=== PATIENT | male | born 1960 | race Caucasian/White ===

== ENCOUNTER 2025-05-03 13:23 | Outpatient (CLI) | payer MEDICARE, BC ==
[~2025-05-03] VITALS: Ht 185.4 cm; Wt 136.1 kg
--- NOTE | 2025-05-03 14:36 | ELECTROCARDIOGRAPH REPORT ---
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 NUSRAT Okeefe Measurements Intervals [place] Rate: 66 P: 58 AL: 212 QRS: 68 QRSD: 114 T: 14 QT: 427 QTc: 448 Interpretive Statements Sinus rhythm Borderline prolonged AL interval Borderline intraventricular conduction delay Borderline T abnormalities, anterior leads Electronically Signed On 05-03-2025 16:40:[address] NUSRAT Okeefe Please click the below link to view image of tracing.
[2025-05-03 14:37] LABS: MEAN PLATELET VOLUME 8.0 FL (7.4-10.4); RED CELL DISTRIBUTION WIDTH 13.3 % (11.5-14.5)
[2025-05-03 14:55] LABS: CREATININE 0.85 MG/DL (0.60-1.10); TOTAL CARBON DIOXIDE 24.4 MMOL/L (24-32); eGFR 90 ML/MIN
[2025-05-03] MEDS ORDERED: CARV25TA2 PO (15:57)
[2025-05-03] MEDS ORDERED: ATOR20TA66 PO (15:57)
[2025-05-03] MEDS ORDERED: HYDR25TA5 PO (15:57)
[2025-05-03] MEDS ORDERED: DOXY-224 PO (15:57)
== END 2025-05-03 23:59 | disposition home or self-care (01) ==
LOC: LAB 13:23 → EDSTATUS 05-12 07:30
PROVIDERS: ATTEND Urology
DX: Z01.818 Encounter for other preprocedural examination (principal); C61 Malignant neoplasm of prostate; I10 Essential (primary) hypertension; E66.9 Obesity, unspecified; G47.33 Obstructive sleep apnea (adult) (pediatric); Z79.2 Long term (current) use of antibiotics; Z79.899 Other long term (current) drug therapy; Z96.651 Presence of right artificial knee joint; Z68.39 Body mass index [BMI] 39.0-39.9, adult
CPT/HCPCS: 36415; 80053; 85025; 86885; 86900; 86901; 93005; A6446; J7120

== ENCOUNTER 2025-06-09 05:34 | Day surgery (SDC) | payer MEDICARE, BC ==
[2025-06-04 14:14] LABS: MEAN PLATELET VOLUME 8.5 FL (7.4-10.4); PRE OP HEMATOCRIT 45.0 % (42.0-52.0); PRE OP HEMOGLOBIN 15.2 g/dL (14.0-17.9); PRE OP PLATELET COUNT 186 X10'3 (140-440); PRE OP WHITE BLOOD COUNT 7.7 10'3 (4.8-10.8); RED CELL DISTRIBUTION WIDTH 13.5 % (11.5-14.5)
[2025-06-04 14:29] LABS: CREATININE 1.03 MG/DL (0.60-1.10); PRE OP ALT 40 U/L (30-65); PRE OP ANION GAP 9 (8-16); PRE OP AST 30 U/L (10-37); PRE OP BILIRUB, TOTAL 0.8 MG/DL (0.0-1.0); PRE OP GLUCOSE 112 MG/DL (70-104); PRE OP POTASSIUM 4.0 MMOL/L (3.4-5.1); PRE OP SODIUM 143 MMOL/L (135-145); TOTAL CARBON DIOXIDE 26.6 MMOL/L (24-32); eGFR 72 ML/MIN
[2025-06-09] VITALS (27 sets, daily range): BP systolic 123–168; BP diastolic 72–105; PULSE 54–85; RESP 10–21; TEMP 96.5–98.1; O2SAT 90–98
[~2025-06-09] VITALS: Ht 185.4 cm; Wt 147.4 kg
[2025-06-09] MEDS: Cefazolin 3 GM/100ML NS IVPB 100 ML IV ONE (05:30)
[2025-06-09] MEDS: DOCUMENT DATE & TIME OF BETA-BLOCKER PO ONE (05:30)
[~2025-06-09 05:34] MED LIST: ATOR20TA66 PO; CARV25TA2 PO; HYDR25TA5 PO
[2025-06-09] MEDS: ringers solution, lacted 1,000 ML IV SCH ×2 (06:04→13:46)
[2025-06-09] MEDS ORDERED: INDOCYANINE GREEN 25 MG/10 ML VIAL IV ONE (07:19)
[2025-06-09] MEDS ORDERED: BUPIVAcaine 0.25% w/Epi /PF 30ml vial ONE (07:19)
[2025-06-09] MEDS ORDERED: BUPIVACAINE liposomal/PF 13.3 MG/ML 10mL vial IM ONE (07:20)
[2025-06-09] MEDS ORDERED: midazolam 1 mg/ML 2ml injection ONE ×2 (07:25→07:26)
[2025-06-09] MEDS ORDERED: fentaNYL /PF 50mcg/ml 5ml ampule ONE (07:26)
[2025-06-09] MEDS ORDERED: rocuronium 10mg/ml inj IV ONE ×2 (07:27→10:47)
[2025-06-09] MEDS ORDERED: propofol inj 20 ML IV ONE (07:27)
[2025-06-09] MEDS: BUPIVAcaine 0.25% w/Epi /PF 30ml vial IJ ONE (07:58)
[2025-06-09] MEDS: BUPIVACAINE liposomal/PF 13.3 MG/ML 10mL vial IM ONE (07:58)
[2025-06-09] MEDS ORDERED: ondansetron/PF 4mg/2ml inj ONE (07:58)
[2025-06-09] MEDS ORDERED: fentaNYL/PF 50MCG/1 ML 2ML syringe IV PRN (10:10)
[2025-06-09] MEDS ORDERED: hydrALAZINE 20mg/ml inj. IV PRN (10:10)
[2025-06-09] MEDS ORDERED: HYDROmorphone/PF 0.2 MG/ML SYRINGE IV PRN (10:10)
[2025-06-09] MEDS ORDERED: labetalol 20mg/4ml (5mg/ml) syringe IV PRN (10:10)
[2025-06-09] MEDS ORDERED: ondansetron/PF 4mg/2ml inj IV PRN ×2 (10:10→12:45)
[2025-06-09] MEDS ORDERED: dexamethasone sod phosphate 4mg/ml inj. ONE (10:47)
[2025-06-09] MEDS ORDERED: glycopyrrolate 0.2mg/ml inj ONE (12:25)
[2025-06-09] MEDS ORDERED: magnesium hydroxide 30ml (MOM) UD suspension PO PRN (12:45)
[2025-06-09] MEDS ORDERED: HYDROmorphone inj. 0.5 MG/0.5 ML DISP.SYRIN IV PRN (12:45)
[2025-06-09] MEDS ORDERED: mag hydrox/Alum hydrox/simeth 30ml oral suspension PO PRN (12:45)
--- NOTE | 2025-06-09 12:50 | OPERATIVE REPORT ---
Operative Report Providers to ~ Date of Procedure: Jun 09, 2025 Pre-Operative Diagnosis: Prostate cancer Post-Operative Diagnosis SAME as PRE-Op Procedure Performed Radical prostatectomy Surgeon: MD Jacqui Paperboard Machine Operator MD Philip Massey NP Anesthesiologist: Yoni Lutz Type of Anesthesia: General Findings: Very large prostate concerning lymph node on the left side Complications None Prosthetics\Implants used: Nicholson catheter Estimated Blood Loss: 200 mL Specimen Removed: 1. Prostate 2. Periprostatic lymph node Description of Procedure: Patient was brought to the operating room, given a general anesthetic, and placed in the supine position. He was prepped and draped in the normal sterile fashion. A timeout was performed. A nicholson catheter was placed. An incision was made above the umbilicus. Verass needle was used the insuflate the abdomen. Then an 8 [place] robotic port was placed. We then placed 3 more robotic ports lateral to the median port. On the right a 12 [place] patient services assistant port was placed under direct visualization. The patient was put into steep trendelenburg and the robot was docked. With the robot docked I used sharp dissection to drop the sigmoid colon. Once the sigmoid colon was dropped I made an incision in the peritoneum posteriorly and dissected to the seminal vesicles and vas deferns bilaterally. Once I was there I was able to dissect the posterior plan. Vas deferns were dissected bilaterally. I next turned my attention to the bladder. I dropped the bladder and approached the prostate from above opening the endopelvic fascia bilaterally with sharp dissection. Once this was completed and all pelvic floor muscles were brushed off the prostate I next turned to taking the bladder neck. Electrocautery was used to dissect the bladder neck until the catheter was reached, at which point the catheter was pulled up and the posterior bladder neck was dissected. Seminal vesicles and vas deferns bilaterally were both pulled up at this point. I next continued fully dissecting the posterior. The pedicles were taken at this point and the nerves were spared. I then used sharp dissection to take the dorsal venous complex, using a 3-0 v-lock suture to close the sinuses. The rest of the urethra was then taken with sharp dissection. The prostate was now free and moved out of the way, and double armed 3-0 v-loc suture was used to approximate the bladder neck to the urethra. I did this circumstantially until it was complete. This was tested with a new nicholson catheter and was water tight. The anastamosis had to be redone as it leaked the first time. The prostate was placed in a specimen bag and the robot was undocked. The incision over the umbilicus was increased to allow the prostate to be removed, at which point it was removed. 2-0 vicryl suture was used to close the fascia, local anesthetic was injected into each wound, and 4-0 monocryl suture was used to close the skin with dermabond glue on the skin level. Level 22 modifier due to the procedure took greater than 50% longer than normal. The patient's body habitus made the case much longer and more challenging. FANTASMA WHALEY MD Jun 09, 2025 12:50
[2025-06-09] MEDS: HYDROmorphone/PF 0.2 MG/ML SYRINGE IV PRN (13:09)
[2025-06-09] MEDS: acetaminophen 1,000mg/100ml IV 100 ML IV PRN (13:21)
[2025-06-09] MEDS: fentaNYL/PF 50MCG/1 ML 2ML syringe IV PRN (13:22)
[2025-06-09] MEDS: HYDROcodone/acetaminophen 5mg/325mg tablet PO PRN (14:27)
[2025-06-09] MEDS: heparin, porcine 5000 units/ml vial SQ SCH (20:00)
[2025-06-09] MEDS: docusate sod 100mg capsule PO SCH (21:05)
[2025-06-10 02:00] VITALS: BP 149/79; PULSE 68; RESP 18; TEMP 96.4; O2SAT 94
[2025-06-10 05:47] LABS: MEAN PLATELET VOLUME 8.7 FL (7.4-10.4); RED CELL DISTRIBUTION WIDTH 13.3 % (11.5-14.5)
[2025-06-10 06:00] LABS: CREATININE 0.99 MG/DL (0.60-1.10); TOTAL CARBON DIOXIDE 28.9 MMOL/L (24-32); eCRCL 84 ML/MIN; eGFR 76 ML/MIN
--- NOTE | 2025-06-10 08:03 | DISCHARGE SUMMARY ---
Discharge Summary Providers to CC ~ Discharge Summary Admission Diagnosis: Prostate cancer Hospital Course DATE OF ADMISSION: 06/09/25 DATE OF DISCHARGE: 06/10/25 Discharge Diagnosis\Comment: Prostate cancer Operations\Procedures: 06/09/25: Radical prostatectomy Consultants: None Complications: None Condition on DC: Stable Discharge Summary: Patient was admitted after surgery. Tolerated a diet and ambulated with pain controlled. Catheter drained clear yellow urine. He did have ulnar radiculopathy bilaterally likely from surgical positioning but this started to improve ov ernight. Doing well with excellent labs on day of discharge. General: Awake and Alert, no acute distress. HEENT: Conjunctiva pink, Sclera clear, Mucus Membranes moist. Neck: Supple without masses and tenderness. Resp: Unlabored. Heart: Regular Rate and rhythm Abdomen: Soft and non-distended Extremities: No cyanosis,clubbing or edema. Skin: Warm and Dry. *Problems/Diagnosis: (1) Prostate cancer Status: Chronic Assessment & Plan: Prostate cancer s/p radical prostatectomy Discharge home today with catheter in place for 1 week. Pain medications prescribed from my office. Total Time Spent on D/C: Up to 30 Minutes FANTASMA WHALEY MD Jun 10, 2025 08:03
[2025-06-10 10:00] VITALS: BP 142/78; PULSE 64; RESP 18; TEMP 97.9; O2SAT 96
== END 2025-06-10 12:02 | disposition home or self-care (01) ==
LOC: PAS 05:34 → ORTHO 4S 15:05 → PAS 06-10 12:02
PROVIDERS: ATTEND Urology
DX: C61 Malignant neoplasm of prostate (principal); I10 Essential (primary) hypertension; E66.9 Obesity, unspecified; G62.9 Polyneuropathy, unspecified; G47.33 Obstructive sleep apnea (adult) (pediatric); Z79.2 Long term (current) use of antibiotics; Z79.899 Other long term (current) drug therapy; Z96.652 Presence of left artificial knee joint; Z98.890 Other specified postprocedural states; Z68.41 Body mass index [BMI] 40.0-44.9, adult
CPT/HCPCS: 36415; 38570; 55866; 80048; 80053; 82948; 85025; 86885; 86900; 86901; 88307; 88309; A4215; A4338; A4357; A4358; A4615; A4618; A5200; A6213; A6402; C1758; J0131; J0665; J0666; J0690; J1100; J1171; J1644; J2250; J2405; J2704; J2710; J3010; J3490; J7030; J7120; Z7506; Z7508; Z7512; Z7610; A6449; G0378